=== PATIENT | female | born 1990 | race Caucasian/White ===

== ENCOUNTER 2017-06-01 10:49 | Emergency (ER) | payer OTHER ==
[2017-06-01 10:58] VITALS: BP 138/81; PULSE 114; RESP 18; TEMP 99.3
[2017-06-01] MEDS ORDERED: IBUPROFEN 600 MG TAB PO STA (12:51)
[2017-06-01] MEDS ORDERED: ACETAMINOPHEN TAB 500 MG TAB PO STA (12:52)
--- NOTE | 2017-06-01 13:06 | ED ---
General Adult HPI - General Chief complaint: Chest Pain Stated complaint: Chest Pain Time Seen by Provider: 06/01/17 10:56 Source: patient, EMS, RN notes reviewed, old records reviewed Mode of arrival: EMS Limitations: no limitations - History of Present Illness Initial comments: This is a 26-year-old female to the ER for evaluation. Patient was is a for evaluation regarding chest pain. Patient underlying has significant history of drug abuse coming from [place] today. Patient states she wants to take her heart out of her chest. She feels suicidal she wants she herself. Patient is complaining of multiple different complaints. States she has multiple different drugs of abuse does not abuse any drugs in 15 days off his plastic her. Patient states that her child is at significant her currently, with 1 years old. Patient states she has had chest pain for years secondary to using crack - Related Data Home Medications Medication Instructions Recorded Confirmed Acetaminophen Tab [Tylenol Tab] 1,000 mg PO Q6HR 06/01/17 06/01/17 Calcium-Magnesium 1 tab PO DAILY 06/01/17 06/01/17 Divalproex Sodium [Depakote] 500 mg PO BID 06/01/17 06/01/17 Ibuprofen [Motrin Ib] 600 mg PO Q6H PRN 06/01/17 06/01/17 Multivitamins, Thera [Multivitamin 1 tab PO DAILY 06/01/17 06/01/17 (formulary)] QUEtiapine FUMARATE [SEROquel] 50 mg PO HS 06/01/17 06/01/17 Sertraline [Zoloft] 100 mg PO DAILY 06/01/17 06/01/17 Allergies Allergy/AdvReac Type Severity Reaction Status Date / Time No Known Allergies Allergy Verified 06/01/17 11:15 Review of Systems ROS Statement: Those systems with pertinent positive or pertinent negative responses have been documented in the HPI. ROS Other: All systems not noted in ROS Statement are negative. Past Medical History Past Medical History: No Reported History Past Surgical History: Section Past Psychological History: ADD/ADHD, Bipolar, Depression Smoking Status: Current every day smoker Past Alcohol Use History: Heavy Past Drug Use History: Cocaine, Heroin, IV Drug Use, Opiates General Exam Limitations: no limitations General appearance: alert, in no apparent distress, anxious Head exam: Present: atraumatic, normocephalic, normal inspection Eye exam: Present: normal appearance, PERRL, EOMI. Absent: scleral icterus, conjunctival injection, periorbital swelling ENT exam: Present: normal exam, mucous membranes moist Neck exam: Present: normal inspection. Absent: tenderness, meningismus, lymphadenopathy Respiratory exam: Present: normal lung sounds bilaterally. Absent: respiratory distress, wheezes, rales, rhonchi, stridor Cardiovascular Exam: Present: regular rate, normal rhythm, normal heart sounds. Absent: systolic murmur, diastolic murmur, rubs, gallop, clicks GI/Abdominal exam: Present: soft, normal bowel sounds. Absent: distended, tenderness, guarding, rebound, rigid Extremities exam: Present: normal inspection, full ROM, normal capillary refill. Absent: tenderness, pedal edema, joint swelling, calf tenderness Back exam: Present: normal inspection Neurological exam: Present: alert, oriented X3, CN II-XII intact Psychiatric exam: Present: normal affect, normal mood Skin exam: Present: warm, dry, intact, normal color. Absent: rash Course Vital Signs 06/01/17 10:53 Temperature 99.3 F Pulse Rate 114 H Respiratory 18 Rate Blood Pressure 138/81 - Reevaluation(s) Reevaluation #1: 06/01/17 13:05 Patient was made medically clear Reevaluation #2: 06/01/17 13:05 Age and given Tylenol Motrin for chest pain EKG Findings - EKG Comments: EKG Findings:: EKG shows normal sinus rhythm rate of 100, AL 138, QRS 86, QTc 459 Medical Decision Making - Medical Decision Making 26 female the ER for evaluation of chest pain, underlying psychiatric disease and suicidal thoughts, depression, drug abuse. Patient is seen and evaluated by psychiatry here in the hospital, denying thoughts of suicide or harming herself or others. Patient discharged back to [place] Disposition Clinical Impression: Chest pain, Anxiety, Drug abuse Disposition: HOME SELF-CARE Condition: Fair Instructions: Chest Pain (ED) Referrals: None,Stated [Primary Care Provider] - 1-2 days
== END 2017-06-01 14:12 | disposition home or self-care (01) ==
LOC: EC 10:49
DX: F41.9 Anxiety disorder, unspecified (principal); R07.9 Chest pain, unspecified; F19.10 Other psychoactive substance abuse, uncomplicated; F32.9 Major depressive disorder, single episode, unspecified; R45.851 Suicidal ideations; F17.200 Nicotine dependence, unspecified, uncomplicated; Z79.899 Other long term (current) drug therapy
CPT/HCPCS: 82075; 99285

== ENCOUNTER 2021-06-04 05:18 | Emergency (ER) | payer OTHER ==
--- NOTE | 2021-06-04 05:31 | ED ---
Psych HPI - General Stated Complaint: Anxiety Time Seen by Provider: 06/04/21 05:22 Source: RN notes reviewed, old records reviewed Limitations: no limitations - History of Present Illness MD Complaint: feels depressed, other (needs ch[facility]) -: hour(s) Associated Psychiatric Symptoms: depression, suicidal ideation, racing thoughts Quality: constant Improves With: none Worsens With: none Context: recent drug abuse, not taking psychiatric medications, significant life stressor Associated Symptoms: insomnia Treatments Prior to Arrival: placed on mental health hold - Related Data Home Medications Medication Instructions Recorded Confirmed Acetaminophen Tab [Tylenol Tab] 1,000 mg PO Q6HR 06/01/17 06/01/17 Calcium-Magnesium 1 tab PO DAILY 06/01/17 06/01/17 Divalproex Sodium [Depakote] 500 mg PO BID 06/01/17 06/01/17 Ibuprofen [Motrin Ib] 600 mg PO Q6H PRN 06/01/17 06/01/17 Multivitamins, Thera [Multivitamin 1 tab PO DAILY 06/01/17 06/01/17 (formulary)] QUEtiapine FUMARATE [SEROquel] 50 mg PO HS 06/01/17 06/01/17 Sertraline [Zoloft] 100 mg PO DAILY 06/01/17 06/01/17 Allergies Allergy/AdvReac Type Severity Reaction Status Date / Time No Known Allergies Allergy Verified 06/01/17 11:15 Review of Systems ROS Statement: Those systems with pertinent positive or pertinent negative responses have been documented in the HPI. ROS Other: All systems not noted in ROS Statement are negative. Past Medical History Past Medical History: No Reported History Past Surgical History: Section Past Psychological History: ADD/ADHD, Bipolar, Depression Past Alcohol Use History: Heavy Past Drug Use History: Cocaine, Heroin, IV Drug Use, Opiates General Exam General appearance: alert, in no apparent distress, anxious Head exam: Present: atraumatic, normocephalic, normal inspection Eye exam: Present: normal appearance, PERRL, EOMI. Absent: scleral icterus, conjunctival injection, periorbital swelling ENT exam: Present: normal exam, mucous membranes moist Neck exam: Present: normal inspection. Absent: tenderness, meningismus, lymphadenopathy Respiratory exam: Present: normal lung sounds bilaterally. Absent: respiratory distress, wheezes, rales, rhonchi, stridor Cardiovascular Exam: Present: regular rate, normal rhythm, normal heart sounds. Absent: systolic murmur, diastolic murmur, rubs, gallop, clicks GI/Abdominal exam: Present: soft, normal bowel sounds. Absent: distended, tenderness, guarding, rebound, rigid Extremities exam: Present: normal inspection, full ROM, normal capillary refill. Absent: tenderness, pedal edema, joint swelling, calf tenderness Back exam: Present: normal inspection Neurological exam: Present: alert, oriented X3, CN II-XII intact Psychiatric exam: Present: normal affect, normal mood Skin exam: Present: warm, dry, intact, normal color. Absent: rash Course Vital Signs 06/04/21 05:30 Temperature 97.8 F Pulse Rate 110 H Respiratory 15 Rate Blood Pressure 138/94 O2 Sat by Pulse 100 Oximetry - Reevaluation(s) Reevaluation #1: 06/04/21 05:30 medical record is reviewed Reevaluation #2: 06/04/21 05:30 patient clear for psych eval. Disposition Clinical Impression: Acute anxiety, Adjustment reaction of adult life Disposition: HOME SELF-CARE Condition: Fair Instructions (If sedation given, give patient instructions): Anxiety (ED) Is patient prescribed a controlled substance at d/c from ED?: No Referrals: None,Stated [Primary Care Provider] - 1-2 days
[2021-06-04 07:28] VITALS: BP 132/79; PULSE 90; RESP 18; TEMP 98
== END 2021-06-04 07:27 | disposition home or self-care (01) ==
LOC: EC 05:18
DX: F43.23 Adjustment disorder with mixed anxiety and depressed mood (principal); F90.9 Attention-deficit hyperactivity disorder, unspecified type
CPT/HCPCS: 82075; 99284